=== PATIENT | male | born 1955 | race African-American/Black ===

== ENCOUNTER 2017-07-24 08:37 | Day surgery (SDC) | payer OTHER ==
[~2017-07-24] VITALS: Ht 165.1 cm; Wt 67.7 kg
[~2017-07-24 08:37] MED LIST: DICLOFENAC SODIUM 0.1% 2.5 ML OPHTHALMIC SOLUTION ONE; DICLOFENAC SODIUM 0.1% 2.5 ML OPHTHALMIC SOLUTION OS ONE; MOXIFLOXACIN HCL 0.5% 3 ML OPHTHALMIC SOLUTION ONE; MOXIFLOXACIN HCL 0.5% 3 ML OPHTHALMIC SOLUTION OS ONE; PHENYLEPHRINE HCL 2.5% 2 ML OPHTHALMIC SOLUTION ONE; RINGERS SOLUTION,LACTATED 500 ML IV ONE; TROPICAMIDE 1% 2 ML OPHTHALMIC SOLUTION ONE
[2017-07-24] MEDS ORDERED: MIDAZOLAM HCL 2 MG/2 ML VIAL IVP ONE (08:38)
[2017-07-24] MEDS ORDERED: FentaNYL CITRATE-PF 100 MCG/2 ML VIAL IVP ONE (08:38)
[2017-07-24 09:32] LABS: GLUCOMETER DEV NAME(LOC) SDS 5; GLUCOSE,POINT OF CARE 121 MG/DL (70-110)
[2017-07-24] MEDS: PHENYLEPHRINE HCL 2.5% 2 ML OPHTHALMIC SOLUTION OS SCH ×2 (09:32→09:38)
[2017-07-24] MEDS: TROPICAMIDE 1% 2 ML OPHTHALMIC SOLUTION OS SCH ×2 (09:32→09:38)
[2017-07-24] MEDS ORDERED: IBUP-2070 PO (09:51)
[2017-07-24] MEDS ORDERED: HYDR25TA PO (09:51)
[2017-07-24] MEDS ORDERED: LISI-661 PO (09:51)
[2017-07-24] MEDS ORDERED: METF500T4 PO (09:51)
[2017-07-24] MEDS ORDERED: OMEP20 PO (09:51)
[2017-07-24] MEDS ORDERED: SIMV-261 PO (09:51)
[2017-07-24] MEDS ORDERED: FLUT16H NASAL (09:51)
[2017-07-24] MEDS ORDERED: DSS100 PO (09:51)
== END 2017-07-24 11:30 | disposition home or self-care (01) ==
LOC: SURGERY 08:37
PROVIDERS: ATTEND Specialist
DX: E11.36 Type 2 diabetes mellitus with diabetic cataract (principal); H25.012 Cortical age-related cataract, left eye; E78.00 Pure hypercholesterolemia, unspecified; I11.9 Hypertensive heart disease without heart failure; F17.210 Nicotine dependence, cigarettes, uncomplicated; I25.2 Old myocardial infarction; Z86.73 Personal history of transient ischemic attack (TIA), and cerebral infarction without residual deficits; Z86.74 Personal history of sudden cardiac arrest; Z79.82 Long term (current) use of aspirin; Z79.84 Long term (current) use of oral hypoglycemic drugs; Z79.1 Long term (current) use of non-steroidal anti-inflammatories (NSAID); Z79.899 Other long term (current) drug therapy
CPT/HCPCS: 66984; 82962; 93005; C1780; J2250; J3010; J7120